=== PATIENT | female | born 1945 | race Caucasian/White ===

== ENCOUNTER 2019-12-07 16:06 | Outpatient (CLI) | payer MEDICARE, BC ==
--- NOTE | 2019-12-08 08:36 | DEXA Report ---
Reason: POSTMENOPAUSAL Procedure Date: 12/07/2019 Accession Number: [id number] / [id number] Procedure: DEX - Dexa Spine and/or Hip CPT Code: Final Report FULL RESULT: EXAM: Dexa Spine and/or Hip DATE: 12/07/2019 4:46 PM CLINICAL HISTORY: POSTMENOPAUSAL TECHNIQUE: Dual energy x-ray absorptiometry (DXA) was performed on a [employer] System. Regions measured are the AP Spine, femoral neck, and if needed forearm. COMPARISON: None. In accordance with the International Society for Clinical Densitometry (ISCD) guidelines, data from previous exams may be reanalyzed using current recommendations and techniques. This is done to allow a more accurate basis for comparison with the current study. FINDINGS: The data for the lumbar spine is as follows: BMD (g/cm/cm) T-SCORE Z-SCORE REGION L1 1.199 0.6 1.7 L2 1.244 0.4 1.5 L3 1.305 0.9 2.0 L4 1.486 2.4 3.6 TOTAL NOTE: All evaluable vertebrae are used for classification The data for the hip is as follows: BMD (g/cm/cm) T-SCORE Z-SCORE REGION Neck 0.983 -0.4 1.2 TOTAL 1.091 0.7 2.0 NOTE: The femoral neck or total proximal femur, whichever is lowest, is used for classification. IMPRESSION: THE WHO CLASSIFICATION BASED ON THE INTERNATIONAL REFERENCE STANDARD IS NORMAL. THE FRACTURE RISK IS NOT INCREASED. RECOMMENDATION: Patients with diagnosis of osteoporosis or osteopenia should have regular bone mineral density assessment. For those eligible for Medicare, routine testing is allowed once every 2 years. Testing frequency can be increased for patients who have rapidly progressing disease or for those who are receiving medical therapy to restore bone mass. COMMENT: World Health Organization (WHO) definitions for osteoporosis and osteopenia: NORMAL BMD: T-score at -1.0 or higher, fracture risk is low OSTEOPENIA BMD: T-score between -1.0 and -2.5, fracture risk is increased. OSTEOPOROSIS BMD: T-score at -2.5 or lower, fracture risk is high. National Osteoporosis Foundation recommends: 1. Obtain adequate dietary calcium (at least 1200 mg per day) and vitamin D (400-800 international units per day). 2. Participate, as appropriate, in regular weightbearing and muscle-strengthening exercise. 3. Avoid tobacco use and reduce alcohol and caffeine intake. 4. For more detailed information see the website at www.NOF.org.
== END 2019-12-07 16:07 | disposition home or self-care (01) ==
LOC: DI 16:06
PROVIDERS: ATTEND Internal Medicine
DX: Z13.820 Encounter for screening for osteoporosis (principal); Z78.0 Asymptomatic menopausal state
CPT/HCPCS: 77080

== ENCOUNTER 2019-12-07 16:10 | Outpatient (CLI) | payer MEDICARE, BC ==
--- NOTE | 2019-12-26 12:35 | Mammography Report ---
Reason: ROUTINE MAMMO Procedure Date: 12/07/2019 Accession Number: [id number] / [id number] Procedure: MELANIE - Screening Mammo w/Maikel CPT Code: Final Report FULL RESULT: EXAM: Screening Mammo w/Maikel DATE: 12/07/2019 4:59 PM CLINICAL HISTORY: Screening encounter. TECHNIQUE: (B) - Bilateral CC and MLO views were obtained. COMPARISON: 06/08/2017 through 05/26/2016. PARENCHYMAL PATTERN: (A) - The breast(s) demonstrate(s) scattered fibroglandular densities. FINDINGS: There are no suspicious masses, calcifications, or areas of distortion. IMPRESSION: Negative examination. BI-RADS category 1. RECOMMENDATION: (ANNUAL) - Recommend routine annual screening mammography. BI-RADS CATEGORY: (1) - Negative. STANDARD QUALIFYING STATEMENTS: 1. This examination was not reviewed with the aid of Computer-Aided Detection (CAD). 2. A negative or benign imaging report should not preclude biopsy if clinically suspicious findings are present. 3. Dense breasts may obscure an underlying neoplasm. 4. This examination was reviewed with the aid of 3D breast imaging (tomosynthesis).
== END 2019-12-07 16:11 | disposition home or self-care (01) ==
LOC: DI 16:10
DX: Z12.31 Encounter for screening mammogram for malignant neoplasm of breast (principal)
CPT/HCPCS: 77063; 77067

== ENCOUNTER 2020-07-26 15:53 | Outpatient (CLI) | payer MEDICARE, BC ==
[2020-07-26] MEDS ORDERED: IOVERSOL 320 100 ML VIAL IVP ONE ×2 (16:06→17:22)
[2020-07-26] MEDS ORDERED: IOVERSOL 320 50 ML VIAL ONE (16:06)
[2020-07-26] MEDS ORDERED: IOVERSOL 320 50 ML VIAL PO ONE (17:21)
--- NOTE | 2020-07-26 18:26 | CT Report ---
PROCEDURE: CHEST W INDICATIONS: WITH ORAL, WEIGHT LOSS,ANOREXIA, NAUSEA CONTRAST: IV CONTRAST: Optiray 320 ml: 100 PO CONTRAST: Optiray 320 ml50 TECHNIQUE: After the administration of intravenous contrast, 5 mm thick sections acquired from the pulmonary api mallory to the posterior costophrenic angles. 7 mm thick coronal MIP reformats were acquired. For radia tion dose reduction, the following was used: automated exposure control, adjustment of mA and/or kV according to patient size. COMPARISON: None. FINDINGS: Image quality: Excellent. Lungs and pleura: Minor bibasilar linear scarring. No acute air space opacities. No pleural effusio ns or pneumothorax. Central and peripheral airways are patent and normal in caliber. Mediastinum: Heart size is normal. No pericardial effusion. No mediastinal or hilar adenopathy by size criteria. Thoracic aorta is ectatic and central pulmonary arteries are normal in size. Esophag us is normal in caliber. Moderate-sized hiatal hernia. Bones and chest wall: No suspicious bony lesions. Multilevel degenerative disc and endplate change i n the mid and lower thoracic spine. No vertebral body compression fractures. No axillary or supracla vicular adenopathy by size criteria. Thyroid gland is diminutive. Abdomen: Visualized abdominal structures will be described on the accompanying CT abdomen pelvis rep ort. IMPRESSION: 1. Moderate size hiatal hernia. 2. Otherwise unremarkable chest CT. Reviewed by: Pia Grimaldo MD on 07/26/2020 6:24 PM PDT Approved by: Pia Grimaldo MD on 07/26/2020 6:24 PM PDT Station ID: [id number]
--- NOTE | 2020-07-26 18:31 | CT Report ---
PROCEDURE: Abdomen/Pelvis W INDICATIONS: WITH ORAL, WEIGHT LOSS,ANOREXIA, NAUSEA CONTRAST: IV CONTRAST: Optiray 320 ml: 100 PO CONTRAST: Optiray 320 ml50 TECHNIQUE: After the administration of 100 cc Optiray 320 IV contrast, 5 mm thick sections acquired from the collin phragms to the symphysis. 5 mm thick coronal and sagittal reformats were acquired. For radiation do se reduction, the following was used: automated exposure control, adjustment of mA and/or kV accordi ng to patient size. COMPARISON: None. FINDINGS: Image quality: Excellent. ABDOMEN: Lung bases: Lung bases are clear. Heart size is normal. Moderate-sized hiatal hernia. Solid organs: Liver and spleen are normal in size and enhancement. Gallbladder is unremarkable. Bi liary system is non dilated. Pancreas enhances normally. No adrenal nodules. Kidneys demonstrate n ormal size and enhancement, without hydronephrosis. A 2.5 cm cyst arises medially from the left alba l midpole. Peritoneum and bowel: There is extensive diverticulosis throughout most of the colon without acute p ericolonic inflammatory change. There are long segment circumferential areas of mild wall thickening which may indicate decompression or chronic colitis. No focal lesions. A normal appendix is present. Small bowel is decompressed. Bowel loops demonstrate normal wall thickness and caliber. No free flui d or air. Nodes and vessels: No retroperitoneal or mesenteric adenopathy by size criteria. Aorta and inferior vena cava are normal in size. Miscellaneous: No ventral hernias. PELVIS: Genitourinary: Bladder wall thickness is normal. The uterus is age-appropriate. No suspicious ovari an masses. Miscellaneous: No inguinal hernias or adenopathy. Bones: No suspicious bony lesions. No vertebral body compression fractures. IMPRESSION: 1. Extensive, pancolonic diverticulosis without changes of acute diverticulitis, but possible changes of chronic diverticulitis. 2. Moderate size hiatal hernia. 3. Left renal cyst. Reviewed by: Pia Grimaldo MD on 07/26/2020 6:30 PM PDT Approved by: Pia Grimaldo MD on 07/26/2020 6:30 PM PDT Station ID: [id number]
== END 2020-07-26 15:54 | disposition home or self-care (01) ==
LOC: DI 15:53
PROVIDERS: ATTEND Internal Medicine
DX: R11.0 Nausea (principal); R63.4 Abnormal weight loss; R63.0 Anorexia; K44.9 Diaphragmatic hernia without obstruction or gangrene; K57.30 Diverticulosis of large intestine without perforation or abscess without bleeding; N28.1 Cyst of kidney, acquired
CPT/HCPCS: 71260; 74177; Q9967

== ENCOUNTER 2021-01-12 14:41 | Emergency (ER) | payer MEDICARE, BC ==
[2021-01-12 14:49] VITALS: BP 170/68
--- NOTE | 2021-01-12 15:18 | ED Physician Documentation ---
PD HPI SKIN - Stated complaint Stated Complaint: COVID VACC REACTION - Chief complaint Chief Complaint: Allergic Rx - History obtained from History obtained from: Patient - History of Present Illness Timing - onset: How many weeks ago (She had her Covid vaccine 2 weeks ago in the left deltoid and had local tenderness and soreness for 2 or 3 days. Mild general aches and chills. She then improved and started with some soreness again 4 days ago at the arm which decreased and now has 2 days of a red/itch locally in the area.) Timing - duration: Weeks (2) Timing - details: Gradual onset, Waxing and waning Location: LUE (lateral upper arm/deltoid area.) Quality / character: Itchy, Burning (mild), Discolored (red), Swelling. No: Vesicular Associated symptoms: No: Fever, Myalgias, N/V/D Contributing factors: Other (COVID vaccine Moderna 2 weeks ago.) Similar symptoms before: Has not had sx before Recently seen: Clinic (had Moderna vaccine 2 weeks ago.) Review of Systems Constitutional: reports: Chills, Myalgias (the first 2-3 days post vaccine. Otherwise just soreness left deltoid area now the past few days.) Nose: denies: Rhinorrhea / runny nose, Congestion Throat: denies: Sore throat Respiratory: denies: Cough Neurologic: denies: Focal weakness, Numbness PD PAST MEDICAL HISTORY - Past Medical History Cardiovascular: None Respiratory: None Neuro: None Endocrine/Autoimmune: None - Allergies Allergies/Adverse Reactions: Allergies Allergy/AdvReac Type Severity Reaction Status Date / Time No Known Drug Allergies Allergy Verified 01/12/21 14:45 PD ED PE NORMAL - Vitals Vital signs reviewed: Yes - General General: Alert and oriented X 3, No acute distress, Well developed/nourished - Neck Neck: Supple, no meningeal sign, No adenopathy - Respiratory Respiratory: No respiratory distress, Clear bilaterally - Derm Derm: Normal color, Warm and dry - Extremities Extremities: Other (No axillary nodes. The left lateral shoulder in the deltoid area shows a 5 to 6 cm diameter area of well demarcated and slightly raised redness with mild warmth in the area. There is some mild central clearing in that area. No fluctuance nor drainage. No red streaks beyond. Looks local rxn.) Results - Vitals Vitals: Vital Signs - 24 hr 01/12/21 14:45 Temperature 36.5 C Heart Rate 64 Respiratory 16 Rate Blood Pressure 170/68 H O2 Saturation 94 Oxygen O2 Source Room air PD MEDICAL DECISION MAKING - ED course Complexity details: considered differential (seems like local reaction, just is delayed now at 10-14 days post vaccine. Pain and tender 10 days later is not unusual. The redness now is less commmon, but still consider local reaction rather than cellulitis. ), d/w patient Departure - Departure Disposition: 01 Home, Self Care Clinical Impression: Local reaction to COVID-19 vaccine Condition: Stable Record reviewed to determine appropriate education?: Yes Instructions: ED Allergic Reaction Local Other Follow-Up: Nikki Waters MD [Primary Care Provider] - Comments: This seems to be local reaction. At this point I would not think it necessarily a bacterial infection. However given the time between the vaccine and now the redness and warmth, that would be a consideration. You can use some Benadryl or cetirizine 2 or 3 times daily over the next several days. Local triamcinolone cream to the area is okay as well. If you have increasing redness warmth or tenderness or develop any symptoms of fever or lymph nodes at this point in the next couple of days, I would be more concerned for a developing skin infection and you do want to recheck with us so your primary care. If this trends down over the next couple of days then just keep doing the antihistamines and time. If this is your only local reactions subsequent to the vaccine, then it would be okay to get your repeat vaccine as well. Discharge Date/Time: 01/12/21 15:25
== END 2021-01-12 15:25 | disposition home or self-care (01) ==
LOC: ED 14:41
DX: M25.512 Pain in left shoulder (principal); M79.10 Myalgia, unspecified site; R68.83 Chills (without fever); T50.Z95A Adverse effect of other vaccines and biological substances, initial encounter; Y84.8 Other medical procedures as the cause of abnormal reaction of the patient, or of later complication, without mention of misadventure at the time of the procedure
CPT/HCPCS: 99281; 99282

== ENCOUNTER 2021-07-02 09:17 | Outpatient (CLI) | payer MEDICARE, BC ==
--- NOTE | 2021-07-03 15:25 | Mammography Report ---
BILATERAL DIGITAL SCREENING MAMMOGRAM 3D/2D: 07/02/2021 CLINICAL: Routine screening. Comparison is made to exam dated: 12/07/2019 mammogram - [facility]. The tissue of both breasts is predominantly fatty. No significant masses, calcifications, or other findings are seen in either breast. There has been no significant interval change. IMPRESSION: NEGATIVE There is no mammographic evidence of malignancy. A 1 year screening mammogram is recommended. This exam was interpreted at Station ID: [id number]. NOTE: For mammograms, a report in lay terms will be sent to the patient. Approximately 15% of breast malignancies will not be visualized mammographically. In the management of a palpable breast mass, a negative mammogram must not discourage biopsy of a clinically suspicious lesion. Electronically Signed By: Tony Geiger acr/penrad:07/02/2021 09:58:44 ACR BI-RADS Category 1: Negative 3341F PARENCHYMAL PATTERN: (F) - The breast(s) demonstrate(s) diffuse fatty replacement. BI-RADS CATEGORY: (1) - 1 RECOMMENDATION: (ANNUAL) - Recommend routine annual screening mammography. [id number] 1 year screening LATERALITY: (B)
== END 2021-07-02 09:18 | disposition home or self-care (01) ==
LOC: DI 09:17
PROVIDERS: ATTEND Internal Medicine
DX: Z12.31 Encounter for screening mammogram for malignant neoplasm of breast (principal)

== ENCOUNTER 2021-07-15 15:15 | Outpatient (CLI) | payer MEDICARE, BC ==
[2021-07-15] MEDS ORDERED: IOVERSOL 320 50 ML VIAL ONE (15:29)
[2021-07-15] MEDS ORDERED: IOPAMIDOL-300 100 ML VIAL ONE (15:29)
[2021-07-15] MEDS ORDERED: IOVERSOL 320 50 ML VIAL PO ONE (16:27)
[2021-07-15] MEDS ORDERED: IOPAMIDOL-300 100 ML VIAL IVP ONE (16:27)
--- NOTE | 2021-07-15 17:04 | CT Report ---
PROCEDURE: Abdomen/Pelvis W INDICATIONS: ABD PAIN, CONSTIPATION, FATIGUE CONTRAST: IV CONTRAST: Isovue 300 ml: 100 PO CONTRAST: Optiray 320 ml50 TECHNIQUE: After the administration of 100 mg contrast, 5 mm thick sections acquired from the diaphragms to the symphysis. 5 mm thick coronal and sagittal reformats were acquired. For radiation dose reduction, t he following was used: automated exposure control, adjustment of mA and/or kV according to patient s ize. COMPARISON: None. FINDINGS: Image quality: Excellent. ABDOMEN: Lung bases: Lung bases are clear. Heart size is normal. Solid organs: Liver and spleen are normal in size and enhancement. Gallbladder is normal in Biliar y system is non dilated. Pancreas enhances normally. No adrenal nodules. Kidneys demonstrate hafsa l size and enhancement, without hydronephrosis. The left kidney has a 2 cm cyst. Peritoneum and bowel: Bowel loops demonstrate normal wall thickness and caliber. There is a moderate -sized hiatal hernia. Large bowel demonstrates increased stool consistent with constipation. No free fluid or air. There is severe diverticulosis of the transverse, left, and sigmoid colon. Nodes and vessels: No retroperitoneal or mesenteric adenopathy by size criteria. Aorta and inferior vena cava are normal in size. Miscellaneous: No ventral hernias. PELVIS: Genitourinary: Bladder wall thickness is normal. Miscellaneous: No inguinal hernias or adenopathy. Bones: The lumbar spine has multilevel degenerative changes. IMPRESSION: 1. No acute abdominal or pelvic abnormality. 2. Moderate-sized hiatal hernia. 3. Constipation. 4. Severe diverticulosis. Reviewed by: Tony Geiger on 07/15/2021 5:03 PM PDT Approved by: Tony Geiger on 07/15/2021 5:03 PM PDT Station ID: [id number]
== END 2021-07-15 15:16 | disposition home or self-care (01) ==
LOC: DI 15:15
PROVIDERS: ATTEND Internal Medicine
DX: R10.9 Unspecified abdominal pain (principal); R53.83 Other fatigue; K59.00 Constipation, unspecified; K44.9 Diaphragmatic hernia without obstruction or gangrene; K57.10 Diverticulosis of small intestine without perforation or abscess without bleeding
CPT/HCPCS: 74177; Q9967

== ENCOUNTER 2021-07-22 16:31 | Outpatient (CLI) | payer MEDICARE, BC | END 2021-07-22 16:32 | disposition home or self-care (01) | LOC: COV 16:31 | PROVIDERS: ATTEND Surgery | DX: Z01.812 Encounter for preprocedural laboratory examination (principal); Z20.822 Contact with and (suspected) exposure to COVID-19 ==

== ENCOUNTER 2021-09-10 13:16 | Outpatient (CLI) | payer MEDICARE, BC | END 2021-09-10 13:17 | disposition home or self-care (01) | LOC: COV 13:16 | PROVIDERS: ATTEND Surgery | DX: Z01.812 Encounter for preprocedural laboratory examination (principal); Z20.822 Contact with and (suspected) exposure to COVID-19 ==

== ENCOUNTER 2022-04-21 08:39 | Outpatient (CLI) | payer MEDICARE, BC ==
--- NOTE | 2022-04-21 13:14 | XRAY Report ---
PROCEDURE: Hip 2 View LT INDICATIONS: HIP PAIN TECHNIQUE: An AP view the pelvis and a crosstable lateral view of the left hip were acquired. COMPARISON: None FINDINGS: Bones: No fractures or dislocations. No suspicious bony lesions. The visualized pelvic ring appear s intact. Mild bilateral hip degenerative change. Lower lumbar degenerative change. Soft tissues: N o suspicious soft tissue calcifications or masses. IMPRESSION: Mild bilateral hip degenerative change. Reviewed by: Cal Thompson MD on 04/21/2022 1:12 PM PDT Approved by: Cal Thompson MD on 04/21/2022 1:12 PM PDT Station ID: [id number]
== END 2022-04-21 23:59 | disposition home or self-care (01) ==
LOC: DI.WOS 08:39
PROVIDERS: ATTEND Physician Assistant Surgical
DX: M16.0 Bilateral primary osteoarthritis of hip (principal)

== ENCOUNTER 2022-05-14 08:26 | Outpatient (CLI) | payer MEDICARE, BC ==
--- NOTE | 2022-05-14 20:14 | XRAY Report ---
PROCEDURE: Clavicle RT INDICATIONS: R CLAVICLE ENLARGEMENT TECHNIQUE: 2 views of the clavicle were acquired. COMPARISON: None. FINDINGS: Bones: No fractures or dislocations. No suspicious bony lesions. Moderate to severe acromioclavicu lar degenerative narrowing. Soft tissues: No suspicious soft tissue calcifications. IMPRESSION: No visualized osseous abnormality. Reviewed by: Ariana Tanner MD on 05/14/2022 8:12 PM PDT Approved by: Ariana Tanner MD on 05/14/2022 8:12 PM PDT Station ID: [id number]
== END 2022-05-14 08:27 | disposition home or self-care (01) ==
LOC: DI 08:26
PROVIDERS: ATTEND Internal Medicine
DX: M25.519 Pain in unspecified shoulder (principal)

== ENCOUNTER 2022-09-23 08:00 | Outpatient (CLI) | payer MEDICARE, BC ==
--- NOTE | 2022-09-23 21:32 | XRAY Report ---
PROCEDURE: Wrist 3 View LT INDICATIONS: LEFT WRIST PAIN TECHNIQUE: Three views of the wrist were acquired. COMPARISON: None FINDINGS: Severe 1st and 2nd CMC degenerative changes with flattening of the articular surfaces and m arked sclerosis of the trapezium. There are also erosive changes of the trapezium with a considerable concavity along the articular surface. Thickened of edematous appearance of the soft tissues adjacen t to the base of the 1st metacarpal. No evidence of fracture. Mild to moderate triscaphe degenerative changes. 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 Reviewed by: Travis Scott MD on 09/23/2022 9:31 PM PDT Approved by: Travis Scott MD on 09/23/2022 9:31 PM PDT Station ID: [id number]
== END 2022-09-23 23:59 | disposition home or self-care (01) ==
LOC: DI.WOS 08:00
PROVIDERS: ATTEND Orthopaedic Surgery
DX: M18.12 Unilateral primary osteoarthritis of first carpometacarpal joint, left hand (principal)

== ENCOUNTER 2022-12-30 09:49 | Outpatient (CLI) | payer MEDICARE, OTHER ==
--- NOTE | 2022-12-30 13:33 | DEXA Report ---
PROCEDURE: Dexa Spine and/or Hip INDICATIONS: OSTEOPENIA TECHNIQUE: Dual energy x-ray absorptiometry (DXA) was performed on a [employer] System. Regions measur ed are the AP Spine, femoral neck, and if needed forearm. COMPARISON: DEXA 12/07/2019 FINDINGS: Lumbar Spine: Bone Mineral Density 1.341 g/cm/cm,T score 1.4, no significant change when compared to the DEXA fr om 12/07/2019 Left Femoral Neck: Bone Mineral Density 0.911 g/cm/cm, T score -0.9, Left Hip: Bone Mineral Density 1.032 g/cm/cm,T score 0.2, decreased by 5.4% when compared to the exam from 12/07. (T score greater or equal to -1.0: NORMAL) (T score from -1.1 to -2.4: OSTEOPENIA) (T score less than or equal to -2.5 to: OSTEOPOROSIS) Impression: Bone mineral density is within normal limits, and has mildly decreased when compared to the exam from 12/07/2019. Patients with diagnosis of osteoporosis or osteopenia should have regular bone mineral density assess ment. For those eligible for Medicare, routine testing is allowed once every 2 years. Testing frequ ency can be increased for patients who have rapidly progressing disease or for those who are receivin g medical therapy to restore bone mass. Reviewed by: Daryl Dolan MD on 12/30/2022 1:32 PM PST Approved by: Daryl Dolan MD on 12/30/2022 1:32 PM PST Station ID: [id number]
== END 2022-12-30 09:50 | disposition home or self-care (01) ==
LOC: DI 09:49
PROVIDERS: ATTEND Internal Medicine
DX: M85.88 Other specified disorders of bone density and structure, other site (principal)

== ENCOUNTER 2023-03-14 09:26 | Outpatient (CLI) | payer MEDICARE, OTHER ==
--- NOTE | 2023-03-14 09:52 | XRAY Report ---
PROCEDURE: Ribs w/PA Chest LT INDICATIONS: RIB PAIN TECHNIQUE: 2 views of the left ribs were acquired, along with a single view chest. COMPARISON: None FINDINGS: Surgical changes and devices: None. Bones and chest wall: No fractures or dislocations. No suspicious bony lesions. Overlying soft tis sues appear unremarkable. Lungs and pleura: No pleural effusions or pneumothorax. Lungs appear clear. Mediastinum: Mediastinal contours appear normal. Heart size is normal. IMPRESSION: No displaced right rib fracture is seen. No suspicious bony lesions. No acute cardiopulmonary pathology. Reviewed by: Jalen Brewster MD on 03/14/2023 9:50 AM PDT Approved by: Jalen Brewster MD on 03/14/2023 9:50 AM PDT Station ID: [id number]
== END 2023-03-14 09:27 | disposition home or self-care (01) ==
LOC: DI 09:26
PROVIDERS: ATTEND Internal Medicine
DX: R07.81 Pleurodynia (principal)

== ENCOUNTER 2023-04-20 15:43 | Outpatient (CLI) | payer MEDICARE, OTHER ==
--- NOTE | 2023-04-20 21:51 | SLEEP CARE CONSULTATION ---
Information from patient questionnaire entered by Rafael Hassan. I have reviewed and concur with the information entered by Rafael Hassan. This document represents the service I personally performed and the decisions made by me, Jose Luis Pollack MD, [facility]. History of Present Illness Service Date and Time: 04/20/2023 1543 Reason for Visit: New patient Chief Complaint: reports: Unrefreshed sleep, Snoring, Excessive daytime sleepiness, Observed pauses in breathing, Fatigue, Frequent awakenings at night Date of Onset: 6MONTHS - YRS Usual bedtime: 1030PM Time it takes to fall asleep: IMMEDIATELY Snores at night: Yes Observed to quit breathing while asleep: Yes Sleeps alone due to snoring: No Number of times waking at night: 2 Reasons for waking at night: reports: Bathroom Toss, Turn, or Twitch while sleeping: Yes Recalls having dreams: Yes Usually gets out of bed at: 6-7AM Feels refreshed in the morning: No Morning headache: No Sleepy or fatigued during the day: Yes Ever fallen asleep while driving: No Takes day naps: No Dreams during day naps: No Prior sleep studies: No Additional HPI information: I have the pleasure of seeing Ms. Reeves today regarding the possibility of her having obstructive sleep apnea. As you know, she is a 77-year-old lady who complains of frequent awakenings, unrefreshed sleep, loud snore, observed apneas, persistent fatigue, and excessive daytime sleepiness for 6 months to a year. She said when she had back pain, she was instructed to sleep on her back with legs elevated. In that position, her saw her quit breathing. Now she sleeping almost exclusively on her side again. The patient tells me that she normally goes to bed around 10:30 pm, and it takes her approximately just a few minutes to fall asleep. She has been told that she snores lightly when sleeping on her back. Her sleeps in the same bed. He uses a CPAP. She can recall waking up on the average of 2 times during the night. Most of the time she wakes up because of having to use the bathroom. She has never awakened because of her own snoring, choking, or having to gasp for air. There is a lot of tossing and turning in her sleep. No somniloquy (sl eep talking) or somnambulism (sleep walking). Generally, she can recall having dreams. In the morning she usually gets up out of the bed around 6 - 7 a.m. not feeling refreshed nor rested. She usually does not have a morning headache. During the day she complains of feeling sleepy and fatigued. Her score on [place] Sleepiness Scale is 7 out of 24. She never has fallen asleep while driving nor has had any accident due to sleepiness. She usually does not take naps during the day. She denies having impaired concentration during the day. 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 Patient is and lives in [place]. Have you smoked in the past 12 months: No Alcohol use: Yes Alcohol amount and frequency: OCCASIONALLY 1-2 X YR Caffeine use: Yes Caffeine amount and frequency: 2 CUPS COFFEE DAILY Family History Family history of sleep disordered breathing: No Allergies and Home Medications Known drug allergies: No Drug allergies reviewed: Yes Home medication list reviewed: Yes Allergy and home medication list: Allergies No Known Drug Allergies Allergy (Verified 01/12/21 14:45) Review of Systems Weight loss over past 5 years: 20 Cardiovascular: reports: high blood pressure, palpitations, leg or foot swelling Respiratory: denies: shortness of breath, wheeze, sputum production, chronic cough, other Gastrointestinal: reports: other (DIVERTICULITIS) Urinary: reports: frequency, urgency Neurological: denies: headaches, seizure, head trauma, disorientation, speech dysfunction, gait or balance problems, fainting or unconsciousness, other Psychiatric: reports: anxiety, claustrophobia Ear/Nose/Throat: reports: dry mouth/throat, wisdom teeth removed Endocrine: reports: sluggishness, too hot or cold, increased urination Musculoskeletal: reports: joint pain, back pain, mobility problems Immunologic: denies: sneezing, rash, itching, allergies to food or environment, other Physical Exam Vital signs obtained and entered by: RAFAEL Pascual MA Blood Pressure: 138/78 (LEFT ARM) Cuff size: regular Heart Rate: 67 O2 Saturation: 97 Height: 5 ft 2 in Weight: 155 lb 12.8 oz Body Mass Index: 28.5 BMI Classification: Overweight Neck circumference: 14.25 Mood/affect: Normal HEENT: No craniofacial malformation Nostrils: patent to airflow Turbinates: normal Septum: midline Mouth and throat: normal Soft palate: normal Hard palate: normal Uvula: normal Uvula visualization: 100% Mallampati Class I Tongue: normal in size Chin and jaw: Overjet Neck: normal w/o lymphadenopathy or thyromegaly Heart: regular rate and rhythm Lungs: clear bilaterally Extremities: no edema or clubbing Neurologic: intact Impression and Plan IMPRESSION: 1. Obstructive Sleep Apnea-Hypopnea Syndrome, as evident by history of loud and irregular snoring, observed cessation of breath while asleep, unrefreshed sleep, and daytime hypersomnolence. Narrow oropharynx is a common predisposing factor for obstructive sleep apnea-hypopnea syndrome. I recommend proceeding to polysomnography to confirm the diagnosis and to assess severity. I informed the patient of what the sleep studies involve and after some discussion, she agreed to proceed. Plan: 1. Schedule polysomnography and return in 1 to 2 weeks after the study to discuss result and initiate therapy. 2. Avoid long distance driving or when feeling sleepy. 3. Avoid alcohol, sedative and muscle relaxant around bedtime. Follow up with Sleep Care in: 1-2 months Visit Type: In Office Time Spent with Patient (minutes): 15 Provider Statement: I spent 100% of the Face to Face Visit with the patient with greater than 50% spent counseling the patient and coordination of care.
[2023-04-20 21:53] VITALS: BP 138/78
== END 2023-04-20 15:44 | disposition home or self-care (01) ==
LOC: SC 15:43
PROVIDERS: ATTEND Internal Medicine Pulmonary Disease
DX: G47.10 Hypersomnia, unspecified (principal); R06.83 Snoring; G47.8 Other sleep disorders; R06.81 Apnea, not elsewhere classified; I10 Essential (primary) hypertension; E66.3 Overweight; Z68.28 Body mass index [BMI] 28.0-28.9, adult
CPT/HCPCS: 99202; G0463; 99212

== ENCOUNTER 2023-05-15 20:32 | Outpatient (CLI) | payer MEDICARE, OTHER | END 2023-05-15 20:33 | disposition home or self-care (01) | LOC: SC 20:32 | PROVIDERS: ATTEND Internal Medicine Pulmonary Disease | DX: G47.33 Obstructive sleep apnea (adult) (pediatric) (principal) | CPT/HCPCS: 95810 ==

== ENCOUNTER 2023-06-03 14:21 | Outpatient (CLI) | payer MEDICARE, OTHER ==
--- NOTE | 2023-06-03 14:43 | Sleep Patient Instructions ---
Sleep Center Visit Summary - Patient Visit Information Reason for Visit: Sleep study followup - Patient Instructions Additional Instructions: You are to start Positional therapy to control your sleep apnea. You may obtain positional belts or other commercial devices online. You may also use pillows to position yourself on your side or a T shirt with balls sewn into the back to help keep you on your side to sleep. We would like to follow up with you in a month to check effectiveness of therapy. Please follow up in the sleep care office in 6 months. - Clinic Information Contact: [facility] [address] [place] [id number] [email or web address] T: [phone]
--- NOTE | 2023-06-03 14:52 | SLEEP CARE CONSULTATION ---
Information from patient questionnaire entered by Xenia Hassan. I have reviewed and concur with the information entered by Xenia Hassan. This document represents the service I personally performed and the decisions made by , Clair Coronado ARNP. History of Present Illness Service Date and Time: 06/03/2023 142 Initial [place] Sleepiness Scale score: 7 Current [place] Sleepiness Scale score: 7 (06/03/23) Additional HPI information: MARISA JIMENEZ returns for follow up and results of the recently performed polysomnography. Patient has mild obstructive sleep apnea with an average AHI of 5.6 and gilbert oxygen saturation of 87%. I explained the pathophysiology behind obstructive sleep apnea. We then spent quite a bit of time discussing different treatment options. For mild obstructive sleep apnea, surgery and oral appliance are alternatives to nasal CPAP therapy but in moderate or severe cases, nasal CPAP is the most effective and reliable treatment. Because apnea is primarily in supine position, then positional management therapy could be effective. Methods discussed such as positioning with pillows, using a T-shirt with tennis balls in the back or commercial products that have a pillow format on back to prevent supine sleep. I reviewed the impact of weight changes on sleep apnea and strongly recommended losing weight. Patient was cautioned about risks of drowsy driving until sleepiness symptoms resolve. Sleep Study - Results Type of Sleep Study: Polysomnography (COMPLETED 05/15/23) Polysomnography/Home Sleep Study results: IMPRESSION: The quality of the study is good. The patient had normal sleep efficiency. The sleep architecture was normal as well. Respiratory monitoring showed mild obstructive sleep apnea- hypopnea (AHI = 5.6) associated with oxyhemoglobin desaturation and mild hypoxia (gilbert oxygen saturation of 87%). The respiratory events occurred almost exclusively during supine sleep (supine AHI = 7.4; non-supine = 2.50). Snore was light to moderate in intensity. There was no significant periodic leg movement of sleep. Cardiac rhythm was normal sinus rhythm without significant arrhythmia. No abnormal behavior (parasomnia) observed during the night. Allergies and Home Medications Known drug allergies: No Drug allergies reviewed: Yes Home medication list reviewed: Yes (no changes) Allergy and home medication list: Allergies No Known Drug Allergies Allergy Review of Systems Review of systems same as previous: Yes (no changes) Physical Exam Vital signs obtained and entered by: XENIA C, MA Blood Pressure: 124/70 (LEFT ARM) Cuff size: regular Heart Rate: 67 O2 Saturation: 96 Height: 5 ft 2 in Weight: 155 lb 3.2 oz Body Mass Index: 28.3 BMI Classification: Overweight Impression and Plan 1. Obstructive Sleep Apnea-Hypopnea Syndrome, mild, with lowest oxygen saturation of 87%. Positive pressure therapy could benefit hypertension and anxiety. Since patients apnea is primarily in supine position, patient advised to try positional therapy and agreed with plan. She has been sleeping on her sides since her told her she stopped breathing when sleeping supine. She has been doing physical therapy to strengthen her back and is having less pain when sleeping non-supine. She feels she can continue sleeping non-supine to control her sleep apnea without problem. She feels that she can maintain positional therapy for her sleep apnea. I will have her follow up in 6 months. She is also advised to lose weight as this will reduce snoring and apnea. An oral appliance can also be used for snoring but often is not covered by insurance. Follow up is scheduled for one month to check effectiveness and if further evaluation indicated such a repeat study in supine position only to see if additional treatment indicated. * Positional therapy. * Maintain a healthy weight. * Avoid alcohol consumption near bedtime. * Avoid supine sleep. * The patient is again cautioned about driving until sleepiness completely resolves. * Return in six months. I will assess response to therapy at that time. Counseling Topics: Sleeping position, Weight loss health impact Visit Type: In Office Time Spent with Patient (minutes): 18 Provider Statement: I spent 100% of the Face to Face Visit with the patient with greater than 50% spent counseling the patient and coordination of care.
[2023-06-03 14:53] VITALS: BP 124/70
== END 2023-06-03 14:22 | disposition home or self-care (01) ==
LOC: SC 14:21
PROVIDERS: ATTEND Nurse Practitioner Family
DX: G47.33 Obstructive sleep apnea (adult) (pediatric) (principal); E66.3 Overweight; Z68.28 Body mass index [BMI] 28.0-28.9, adult
CPT/HCPCS: 99212; G0463

== ENCOUNTER 2024-06-28 12:45 | Outpatient (CLI) | payer MEDICARE, OTHER | END 2024-06-28 12:46 | disposition home or self-care (01) | LOC: DI 12:45 | PROVIDERS: ATTEND Internal Medicine | DX: I35.0 Nonrheumatic aortic (valve) stenosis (principal) | CPT/HCPCS: 93307 ==